=== PATIENT | male | born 1945 | race Caucasian/White ===

== ENCOUNTER 2020-11-16 17:46 | Emergency (ER) | payer OTHER ==
[~2020-11-16] VITALS: Ht 180.3 cm; Wt 79.4 kg
[2020-11-16] MEDS ORDERED: ZESTRIL10 MG PO (18:35)
[2020-11-16] MEDS ORDERED: SERTRALINE HCL100 MG PO (18:35)
[2020-11-16 18:46] LABS: ABSOLUTE NEUTROPHILS 4.7 thou/uL (1.4-8.2); BASOPHILS 0.3 % (0.0-2.0); EOSINOPHILS 0.2 % (0.0-3.0); HEMATOCRIT 49.1 % (42.0-52.0); HEMOGLOBIN 16.3 gm/dL (14.0-18.0); LYMPHOCYTES 13.4 % (24.0-44.0); MCH 30.6 pg (26.0-34.0); MCHC 33.1 g/dL (28.0-37.0); MCV 92.4 fL (80.0-100.0); MONOCYTES 9.5 % (1.0-8.0); PLATELET COUNT 128 thou/uL (150-400); POLYS 76.6 % (36.0-66.0); RBC 5.32 mil/uL (4.50-6.00); RDW 13.1 % (10.5-14.5); WBC 6.1 thou/uL (4.0-11.0)
[2020-11-16 18:48] LABS: ANION GAP 8 mmol/L (7-16); BUN 26 mg/dL (7-18); CALCIUM 8.9 mg/dL (8.5-10.1); CHLORIDE 104 mmol/L (98-107); CO2 27 mmol/L (21-32); CREATININE 1.1 mg/dL (0.7-1.3); GLUCOSE 100 mg/dL (74-106); POTASSIUM 4.1 mmol/L (3.5-5.1); SODIUM 139 mmol/L (136-145)
[2020-11-16 18:59] LABS: ALBUMIN 3.7 g/dL (3.4-5.0); MAGNESIUM 2.1 mg/dL (1.8-2.4); SGOT 18 U/L (15-37); SGPT 32 U/L (16-63); TOTAL PROTEIN 6.6 g/dL (6.4-8.2); TROPONIN-I <0.06 ng/mL (<0.06)
[2020-11-16 20:31] VITALS: BP 110/61
--- NOTE | 2020-11-17 07:12 | EKG ---
[place] [address] [facility] [place] [address] ELECTROCARDIOGRAM REPORT Name: RYAN MCCALL Room #: ANDREEA De León#: [id number] Admission: 11/16/20 Attend Phys: Discharge: 11/16/20 Date of : 49 Report #: [id number] [facility] ED Test Date: 2020-11-16 Test Time: 18:42:38 Pat Name: RYAN MCCALL Department: Room: Gender: M Bonded Structures Repairer: reginaldo hollis : 1945 Requested By: John Mcqueen Order Number: [id number] MD: Grant De Paz Measurements Intervals [place] Rate: 131 P: AL: QRS: -33 QRSD: 89 T: 4 QT: 314 QTc: 464 Interpretive Statements Atrial fibrillation Left ventricular hypertrophy Anterior Q waves, possibly due to LVH Baseline wander in lead(s) V2 No previous ECG available for comparison Electronically Signed On 11-17-2020 7:12:46 COMPRESSION MOLDING MACHINE TENDER by Grant De Paz [email or web address] <ELECTRONICALLY SIGNED> By: Grant De Paz MD, [facility] 11/17/20 [id number] [id number] Grant De Paz MD, FACC /EPI
--- NOTE | 2020-11-17 07:13 | EKG ---
[facility] [place] [address] ELECTROCARDIOGRAM REPORT Name: RYAN MCCALL Room #: [facility] De León#: [id number] Admission: 11/16/20 Attend Phys: Discharge: 11/16/20 Date of : [birth year] Report #: [id number] [facility] ED Test Date: 2020-11-16 Test Time: 19:41:13 Pat Name: RYAN MCCALL Department: Room: Gender: M Director Of Financial Reporting: reginaldo hollis : 1945 Requested By: John Mcqueen Order Number: [id number] MD: Grant De Paz Measurements Intervals [place] Rate: 78 P: 31 [place]: 188 QRS: -29 QRSD: 90 T: 0 QT: 371 QTc: 423 Interpretive Statements Sinus rhythm Probable left atrial enlargement Abnormal R-wave progression, early transition Left ventricular hypertrophy Baseline wander in lead(s) V6 Compared to ECG 11/16/2020 18:42:38 Atrial fibrillation no longer present Electronically Signed On 11-17-2020 7:13:19 PRESIDENT & CEO by Grant De Paz [email or web address] <ELECTRONICALLY SIGNED> By: Grant De Paz MD, [facility] 11/17/20712 40 40 Grant De Paz MD, FAC /EPI
== END 2020-11-16 20:30 | disposition home or self-care (01) ==
LOC: ER 17:46
PROVIDERS: Emergency Medicine
DX: I48.0 Paroxysmal atrial fibrillation (principal); I10 Essential (primary) hypertension; Z79.899 Other long term (current) drug therapy